=== PATIENT | male | born 1975 | race African-American/Black ===

== ENCOUNTER 2017-08-22 08:52 | Emergency (ER) | payer SELFPAY ==
[~2017-08-22] VITALS: Ht 185.4 cm; Wt 70.3 kg
[2017-08-22 09:38] VITALS: BP 169/104
[2017-08-22] MEDS ORDERED: KETOROLAC TROMETH 60MG/2ML VIAL IM ONE (09:45)
== END 2017-08-22 10:21 | disposition home or self-care (01) ==
LOC: ER 08:52
DX: S46.912A Strain of unspecified muscle, fascia and tendon at shoulder and upper arm level, left arm, initial encounter (principal); F17.210 Nicotine dependence, cigarettes, uncomplicated; X58.XXXA Exposure to other specified factors, initial encounter; Y93.89 Activity, other specified; Y99.8 Other external cause status; Y92.89 Other specified places as the place of occurrence of the external cause
CPT/HCPCS: 73030; 93005; 96372; 99284; J1885